=== PATIENT | female | born 1950 | race Caucasian/White ===

== ENCOUNTER 2016-12-27 14:11 | Emergency (ER) | payer OTHER ==
--- NOTE | 2016-12-27 17:35 | Diag Imaging Result Document ---
PROCEDURE NAME: HIP 1 VIEW RIGHT - 12/27/2016 RIGHT HIP, SINGLE VIEW: FINDINGS: No fracture or dislocation identified on this single view of the right hip. If clinical suspicion persists then additional views are recommended.
--- NOTE | 2016-12-27 17:38 | Diag Imaging Result Document ---
PROCEDURE NAME: LUMBAR SPINE - 12/27/2016 LUMBAR SPINE, AP AND LATERAL WITH OBLIQUES, 6 VIEWS: FINDINGS: There is mild scoliosis with moderate degenerative changes. No compressed vertebra. No subluxation. There is a vacuum disk at L3-4. The gallbladder has been removed. IMPRESSION: Mild scoliosis with moderate degenerative changes, but no acute bony injury.
[2016-12-27] MEDS ORDERED: ZOFRAN ODT PO ONE (18:53)
[2016-12-27] MEDS ORDERED: DEMEROL PO ONE (18:53)
--- NOTE | 2016-12-27 18:59 | PROVIDER DOCUMENTATION ---
HPI-General Adult - General Chief Complaint: Fall Stated Complaint: FALL Time Seen by Provider: 12/27/16 18:49 Source: patient Allergies/Adverse Reactions: Patient Allergies Allergy/AdvReac Type Severity Reaction Status Date / Time Penicillins Allergy RASH Verified 12/27/16 14:27 acetaminophen [From Lortab] AdvReac Unknown see Verified 12/27/16 14:27 comment box ciprofloxacin AdvReac Unknown chest pain Verified 12/27/16 14:27 hydrocodone bitartrate * AdvReac Unknown see Verified 12/27/16 14:27 [From Lortab] comment box ciprofloxacin HCl * AdvReac ABDOMINAL Verified 12/27/16 14:27 [From Cipro] PAIN oxycodone HCl * AdvReac NAUSEA Verified 12/27/16 14:27 [From Percocet] tramadol AdvReac ABDOMINAL Verified 12/27/16 14:27 PAIN Home Medications: Home Medication List Medication Instructions Recorded Confirmed Last Taken Type Zolpidem [Ambien] 5 mg PO QHS 03/01/14 09/24/15 09/23/15 21:00 History Meperidine [Demerol] 50 mg PO Q4H PRN PRN #10 tablet 12/27/16 Unknown Rx Ondansetron [Zofran Odt] 4 mg PO 4XDAY PRN PRN #20 12/27/16 Unknown Rx tab.rapdis Rivaroxaban [Xarelto] 20 mg PO BID 12/27/16 12/27/16 Unknown History - History of Present Illness -Gen Adult Nature of Presenting Problems: 66 YOWF PRESENTS TO ED WITH C/O PT STATES AROUND 8:30 THIS MORNING SHE SLIPPED AND FELL ON ICY STEPS AT HOME. PT STATES RT LOWER BACK PAIN AND RT HIP PAIN. Location of Pain/Injury: reports: back (RT LOWER), pelvis (RT) Pain Radiation: reports: no radiation Quality of Pain: reports: aching Severity: reports: moderate Onset/Duration: reports: other (11 HOURS) Timing: reports: still present Context/Activities at Onset: reports: light activity Modifying Factors: improves with: nothing Similar Symptoms Previously?: No Recently seen or treated by another doctor?: No Review of Systems - Adult - REVIEW OF SYSTEMS - ADULT Constitutional: denies: chills, fever Eyes: reports: no symptoms reported Ears, Nose, Mouth & Throat: reports: no symptoms reported Cardiovascular: denies: chest pain, palpitations, syncope Respiratory: denies: cough, shortness of breath, wheezing Gastrointestinal: denies: abdominal pain, diarrhea, nausea, vomiting Genitourinary: reports: no symptoms reported Musculoskeletal: reports: back pain (RT LOWER). denies: neck pain Integumentary: reports: no symptoms reported Neurological: denies: dizziness/vertigo, headache/migraines, syncope Psychiatric: reports: no symptoms reported Endocrine: reports: no symptoms reported Hematologic/Lymphatic: reports: no symptoms reported Allergic/Immunologic: reports: no symptoms reported All Other Systems: Reviewed and Negative Past History - Adult - PAST MEDICAL HISTORY-ADULT Review of Records: reports: Nursing Assessment Review, Medications Reviewed Cardiovascular: reports: blood clots, HTN, hyperlipidemia Gastrointestinal: reports: GERD - PRIOR SURGERIES/PROCEDURES Surgical/Procedure History: reports: cholecystectomy, hysterectomy - IMMUNIZATION STATUS Childhood Immunizations: See Nurse Assessment Flu Vaccine: See Nurse Assessment - SOCIAL HISTORY Smoking: denies Substance Use: denies Alcohol Use Frequency: never Living Situation: family Physical Exam-General - CONSTITUTIONAL General Appearance: alert, moderate distress - EYES Eyes: PERRL/EOMI, pink conjunctivae - HEAD, EARS, NOSE, MOUTH & THROAT HENMT: normocephalic/atraumatic, moist mucous membranes - NECK Neck: non-tender, full range of motion, supple - RESPIRATORY Respiratory: chest non-tender, lungs clear, normal breath sounds - CARDIOVASCULAR Cardiovascular: normal peripheral pulses, regular rate, rhythm - GASTROINTESTINAL (ABDOMEN) Abdominal Exam: normal bowel sounds, non tender, soft - LYMPHATIC Lymphatic: no adenopathy - MUSCULOSKELETAL Back Exam: normal inspection, no CVA tenderness, no vertebral tenderness Extremity: normal range of motion, non-tender - SKIN Integumentary: normal color, normal turgor, warm/dry - NEUROLOGIC Neurologic: grossly normal - PSYCHIATRIC Psych/Mental Status: oriented x 3 Progress - XRAY 1 XRAY: Right XRAY Study: Lumbar Spine XRAY Interpretation: NEGATIVE 2 XRAY: Right XRAY Study: Hip XRAY Interpretation: NEGATIVE Departure - Departure Time of Disposition Order: 19:01 DIAGNOSIS: Lumbar contusion Qualifiers: Encounter type: initial encounter Qualified Code(s): S30.0XXA - Contusion of lower back and pelvis, initial encounter Contusion of hip, right Qualifiers: Encounter type: initial encounter Qualified Code(s): S70.01XA - Contusion of right hip, initial encounter Disposition: HOME 01 Certified Medical Emergency: Emergent Condition: Stable Additional Instructions: ED Follow Up Instructions: You have been treated by a care provider in the Emergency Department. These instructions are being provided to you so you can have an understanding of how to care for yourself upon discharge. Upon discharge from the Emergency Department, you are responsible for making arrangements for follow-up care by a physician of your choice. Take all prescribed medications as directed. Return to the Emergency Department immediately for any new or worsening symptoms. You may call the Physician Referral phone number at [phone] to obtain a list of Physicians who are taking new patients. Attestation - Scribe Verification/Attestation Scribe:: Kelby Maki Acting as Scribe for:: Sergei Zambrano Scribe documention review:: This chart was documented by a scribe and accurately reflects the service the provider performed and the decisions made by the provider.
[2016-12-27 19:05] VITALS: BP 164/83
== END 2016-12-27 19:06 | disposition home or self-care (01) ==
LOC: P.ED 14:11
DX: S30.0XXA Contusion of lower back and pelvis, initial encounter (principal); S70.01XA Contusion of right hip, initial encounter; M54.5 Low back pain; M25.551 Pain in right hip; I10 Essential (primary) hypertension; E78.5 Hyperlipidemia, unspecified; Z86.718 Personal history of other venous thrombosis and embolism; W01.0XXA Fall on same level from slipping, tripping and stumbling without subsequent striking against object, initial encounter; Z79.899 Other long term (current) drug therapy; Z79.01 Long term (current) use of anticoagulants
CPT/HCPCS: 72110; 99283